=== PATIENT | male | born 1985 | race Caucasian/White ===

== ENCOUNTER 2016-06-15 19:51 | Emergency (ER) | payer BC ==
[2016-06-15 20:09] VITALS: BP 140/90
--- OUTSIDE RECORDS SUMMARY | 2016-06-15 22:12 | XMS REPORT | Continuity of Care Document ---
:1985 Author Organization [facility] ([facility]) Address [address] [place] [address] Phone [phone] Care Team Providers Name Role Phone Tommy Cramer Primary Care Provider [phone] Source Comments This disclosure is being made pursuant to the Care Everywhere program, applicable federal and state laws, and may not contain all informaitonavailable regarding this patient.[facility] ([facility]) Active Allergies and Adverse Reactions No Known Allergies Current Medications Prescription Sig. Disp. Refills Start Date End Date Status montelukast 10 mg Take 10 mg by Active tablet mouth daily sofosbuvir (SOVALDI) Take 1 tablet 28 tablet 2 06/06/2015 Active 400 mg tablet (400 mg total) by mouth daily. daclatasvir (DAKLINZA) Take 1 tablet (60 28 tablet 2 06/06/2015 Active 60 mg tablet mg total) by mouth daily. amLODIPine 5 mg tablet Take 5 mg by Active mouth daily. ranitidine 150 mg Take 150 mg by Active tablet mouth 2 times daily. ibuprofen 200 mg tablet Take 600-800 mg Active by mouth 2 times daily as needed (generally 1200mg/day). 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 Pulse 89 03/08/2015 1:00 PM CHART READER Temperature 36.6 C (97.9 F) 03/08/2015 1:00 PM CHART READER Respiratory Rate - - Height 1.676 m (5' 6") 03/08/2015 1:00 PM CHART READER Weight 126.7 kg (279 lb 5.2 oz) 07/19/2015 9:43 AM CDT Body Mass Index 45.11 07/19/2015 9:43 AM CDT Oxygen Saturation - - Plan of Care Health Maintenance Due Date Last Done Comments Hepatitis B Vaccine (1 of 3 - Primary Series) 1985 Tdap Vaccine 12/08/1998 MMR Vaccine 12/08/2005 Td Vaccine 12/08/2005 Varicella Vaccine (1 of 2 - Adult - No Evidence of 12/08/2005 Immunity) Pneumococcal Vaccine (1 of 1 - PPSV23) 12/08/2006 Influenza Vaccine: Seasonal (#1) 10/03/2015 Lipid Disorder Screening 03/08/2020 03/08/2015 Results from Last 3 Months Not on file
== END 2016-06-15 22:05 | disposition left against medical advice (07) ==
LOC: ER 19:51
DX: Z53.21 Procedure and treatment not carried out due to patient leaving prior to being seen by health care provider (principal)

== ENCOUNTER 2016-06-20 19:57 | Emergency (ER) | payer BC ==
--- OUTSIDE RECORDS SUMMARY | 2016-06-20 20:16 | XMS REPORT | Continuity of Care Document ---
:1985 Author Organization [facility] ([facility]) Address [address] [place] [address] Phone [phone] Care Team Providers Name Role Phone Tommy Cramer Primary Care Provider [phone] Source Comments This disclosure is being made pursuant to the Care Everywhere program, applicable federal and state laws, and may not contain all informaitonavailable regarding this patient.[facility] (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
--- NOTE | 2016-06-20 20:24 | ERNOTE ---
Chest Pain/Cardiac HPI Time Seen by Provider: 06/20/16 20:10 Source: patient Exam Limitations: no limitations Immunizations: IMMUNIZATION HX Immunizations Up to Date Yes History of Influenza Vaccine More Information Required Allergies/Adverse Reactions: Allergies No Known Allergies Allergy (Verified 06/20/16 20:16) Home Medications: HOME MEDICATIONS Montelukast Sodium [Singulair] 10 mg PO DAILY 07/11/15 [Last Taken 07/11/15] amLODIPine BESYLATE [Norvasc] 5 mg PO DAILY 07/11/15 [Last Taken 07/11/15] Meloxicam [Mobic] 15 mg PO DAILY 06/15/16 [Last Taken Unknown] Omeprazole 20 mg PO DAILY 06/15/16 [Last Taken Unknown] Sertraline HCl [Zoloft] 50 mg PO DAILY 06/15/16 [Last Taken Unknown] traMADol HCL [Ultram] 50 - 100 mg PO QID PRN #20 tab 06/20/16 [Last Taken Unknown] Narrative: approx 18:00 howard bailey was working (physically demanding job) and had "a funny feeling in his heart" that felt like it skipped a beat or beat very hard. He began to get dizzy and stopped working. He then began to have left shoulder, jaw and arm pain. No shortness of breath or diaphoresis outside of his usual with his job. Timing: constant Severity/Quality: moderate Location: shoulder Chest Pain Radiation: jaw, neck Activities at Onset: activity Modifying Factors - Worsens: Present: nothing Nitro Today/Relief: no nitro taken today Aspirin Treatment Today: no aspirin today Associated Symptoms: Present: dizziness, palpitations. Absent: shortness of breath, diaphoresis, nausea Prior Chest Pain/Cardiac Workup: Reports: no prior cardiac workup Prior Treatment: Reports: treated by physician - for tonsilitis 3 weeks ago with antibiotics and steroids Review of Systems - Review of Systems Constitutional: Present: no symptoms reported EYE: Present: no symptoms reported ENT: Present: no symptoms reported Respiratory: Present: cough Cardiology: Present: See HPI Gastrointestinal/Abdominal: Present: other - had urgency of stool without diarrhea soon after the episode but no other symptoms Genitourinary: Present: no symptoms reported Musculoskeletal: Present: no symptoms reported Skin: Absent: rash Neurological: Present: dizziness/light-headedness. Absent: weakness, numbness Endocrine: Absent: excessive sweating, flushing Hematologic/Lymphatic: Present: no symptoms reported Psych: Present: no symptoms reported - Patient's Past Medical History Patient History - Medical: GERD Patient History - Cardiac/Respiratory: Hypertension Patient History - Cancer: No Hx of Cancer Patient History - Surgical Procedures: Colonoscopy Patient History - Other: None - Family History Mother Family History - Medical: No pertinent hx Father Family History - Medical: No pertinent hx - Social History Living Situations: spouse Abuse History: No History of abuse Psych History: No pertinent hx Alcohol Use: none Drug Use: none - Immunizations Immunizations Up to Date: Yes History of Influenza Vaccine: More Information Required to Determine Physical Exam - Physical Exam General Appearance: Present: wd/wn, alert, no apparent distress Eye Exam: Normal inspection: bilateral, PERRL: bilateral Ears, Nose, Throat: Present: normal ENT inspection Neck: Present: normal inspection, nontender, supple Respiratory: Present: no respiratory distress, wheezing - inspiratory and expiratory. Absent: chest tenderness, rales Cardiovascular/Chest: Present: regular rate, rhythm Gastrointestinal/Abdominal: Present: normal bowel sounds, nontender Back Exam: Present: normal inspection, normal range of motion Extremity Exam: Present: normal inspection, no edema Neurological Exam: Present: alert, oriented, normal mood/affect Skin Exam: Present: normal color, warm/dry Lymphatic Exam: Present: no adenopathy ED Progress - Results and Orders Patient's Lab Results:: I have reviewed the patient's lab results. Results and Orders: Laboratory Tests 06/20/16 06/20/16 06/20/16 20:35 20:35 20:35 WBC 9.0 Hgb 13.3 L Hct 40.9 L Plt Count 230 ESR 39 H Sodium 143 H Potassium 4.0 Chloride 107 H Carbon Dioxide 24.7 Anion Gap 15.3 H BUN 13 Creatinine 1.10 Est GFR (Non-Af Amer) 85 Random Glucose 100 Calcium 9.3 Total Bilirubin 0.2 AST 21 ALT 33 Alkaline Phosphatase 78 Troponin I Less than 0.017 C-Reactive Prot, Quant Total Protein 7.8 Albumin 4.1 06/20/16 06/20/16 20:35 22:44 WBC Hgb Hct Plt Count ESR Sodium Potassium Chloride Carbon Dioxide Anion Gap BUN Creatinine Est GFR (Non-Af Amer) Random Glucose Calcium Total Bilirubin AST ALT Alkaline Phosphatase Troponin I Less than 0.017 C-Reactive Prot, Quant 0.5 Total Protein Albumin - Vital Signs Patient's Vital Signs:: I have reviewed the patient's vital signs. - EKG EKG: NSR EKG read: Interp. by me - X-Ray X-Ray #1 X-Ray: chest Interpretation: Reviewed by me X-ray Comments: Nothing acute - CT/Ultrasound CT/Ultrasound Narrative: CT head without contrast: IMPRESSION: 1. NO ACUTE INTRACRANIAL PROCESS; THERE IS CONTINUED CLINICAL CONCERN , FOLLOW-UP MRI OF THE BRAIN IS RECOMMENDED. Electronically signed by Pato Orantes M.D.. - Progress/Reassessment Progress:: Re-examined Progress Note-Subjective: 06/20/16 20:32 Pt's comes out of the room stating that the patients shoulder pain is increasing and that his "left leg is numb". Specifically the patient states that his left upper anterior thigh is "fuzzy feeling". With palpation the patient can feel soft touch through his jeans but it feels "fuzzy". Motor and sensory otherwise normal in upper and lower extremities. 06/20/16 23:15 Pt feeling much better. Discussed diagnosis and treatment, Pt and family express understanding Departure - Departure Clinical Impression: Bronchitis, Pleurisy without effusion Disposition: Home Follow Up Needed Condition: Good Instructions: Acute Bronchitis, [id number], Pleurisy Additional Instructions: See your regular doctor in 5-7 days to check on progress. Return to ER as needed Referrals: Tommy Cramer MD [Primary Care Provider] - Prescriptions: traMADol HCL [Ultram] 50 - 100 mg PO QID PRN #20 tab PRN Reason: Pain
[2016-06-20] MEDS ORDERED: KETOROLAC TROMETHAMINE 30 MG/ML VIAL IV ONE (20:35)
[2016-06-20] MEDS ORDERED: KETOROLAC TROMETHAMINE 30 MG/ML VIAL ONE (20:40)
[2016-06-20 20:42] LABS: Hematocrit 40.9 % (42.0-52.0); Hemoglobin 13.3 gm/dL (13.5-18.0); Mean Cell Volume 90.5 fl (78-100); Mean Corpuscular Hemoglobin 29.4 pg (27-31); Mean Corpuscular Hgb Conc 32.5 g/dl (32-36); Mean Platelet Volume 9.6 fl (6.0-9.5); Platelet Count 230 K/mm3 (150-450); Red Blood Count 4.52 M/mm3 (4.7-6.0); Red Cell Distribution Width 13.7 % (11.5-14.0)
[2016-06-20 21:01] LABS: ALT 33 U/L (19-67); AST 21 U/L (0-48); Albumin * 4.1 gm/dl (3.4-5.0); Alkaline Phosphatase * 78 U/L (50-170); Anion Gap 15.3 mmol/L (6.8-13.8); BUN/Creatinine Ratio 11.8 (9.0-21.6); Bilirubin, Total 0.2 mg/dL (0.0-1.1); Blood Urea Nitrogen 13 mg/dL (6-23); Ca. Corrected For Albumin 8.9 mg/dL (8.4-10.2); Calcium * 9.3 mg/dL (7.9-10.9); Carbon Dioxide 24.7 mmol/L (24-32.6); Chloride 107 mmol/L (97-106); Glucose * 100 mg/dL (70-110); Sodium 143 mmol/L (132-142); Total Protein 7.8 gm/dL (6.2-8.2)
[2016-06-20 21:02] LABS: Troponin I Less than 0.017 ng/ml (0.00-0.10)
[2016-06-20] MEDS ORDERED: ALBUTEROL SULFATE 2.5 MG/3 ML VIAL.NEB IH ONE (21:06)
[2016-06-20] MEDS ORDERED: ALBUTEROL SULFATE 2.5 MG/0.5 ML VIAL.NEB IH ONE (21:11)
[2016-06-20] MEDS ORDERED: NALBUPHINE HCL 20 MG/ML AMPUL IV ONE (22:00)
[2016-06-20] MEDS ORDERED: NALBUPHINE HCL 20 MG/ML AMPUL ONE (22:08)
[2016-06-20] MEDS ORDERED: DEXAMETHASONE SOD PHOSPHATE 10 MG/ML VIAL IM ONE (23:21)
[2016-06-20] MEDS ORDERED: METHYLPREDNISOLONE ACETATE 80 MG/ML VIAL IM ONE (23:21)
[2016-06-20] MEDS ORDERED: traMADol HCL 50 MG TABLET PO ONE (23:24)
[2016-06-20] MEDS ORDERED: ALBUTEROL SULFATE 60 PUFF INHALER IH ONE ×2 (23:26→23:38)
[2016-06-20] MEDS ORDERED: DEXAMETHASONE SOD PHOSPHATE 10 MG/ML VIAL ONE (23:27)
[2016-06-20] MEDS ORDERED: METHYLPREDNISOLONE ACETATE 80 MG/ML VIAL ONE (23:27)
[2016-06-20] MEDS ORDERED: traMADol HCL 50 MG TABLET ONE (23:27)
[2016-06-21 00:07] VITALS: BP 134/72
== END 2016-06-20 23:40 | disposition home or self-care (01) ==
LOC: ER 19:57
DX: J40 Bronchitis, not specified as acute or chronic (principal); R09.1 Pleurisy; K21.9 Gastro-esophageal reflux disease without esophagitis; I10 Essential (primary) hypertension